=== PATIENT | male | born 1995 | race Hispanic/Latino ===

== ENCOUNTER 2020-04-19 13:20 | Emergency (ER) | payer OTHER ==
[2020-04-19 13:46] LABS: BASOPHILS % (AUTO) 0.2 % (0.0-5.0); EOSINOPHILS % (AUTO) 2.1 % (0.0-8.0); LYMPHOCYTES % (AUTO) 24.9 % (21.0-51.0); MEAN CORPUSCULAR HEMOGLOBIN 29.4 pg (27.0-33.0); MEAN CORPUSCULAR HGB CONC 34.7 g/dL (32.0-36.0); MEAN CORPUSCULAR VOLUME 84.7 fL (79-99); MONOCYTES % (AUTO) 5.7 % (3.0-13.0); NEUTROPHILS % (AUTO) 66.7 % (40.0-77.0); PLATELET COUNT (AUTO) 199 K/uL (130-400); RED BLOOD CELL COUNT(AUTO) 5.31 MIL/uL (4.50-6.20); WHITE BLOOD COUNT (AUTO) 8.5 K/uL (4.8-10.8)
[2020-04-19 13:56] LABS: CREATININE 0.8 mg/dL (0.5-1.5); POTASSIUM 3.8 mmol/L (3.5-5.1)
[2020-04-19] MEDS ORDERED: ACETAMINOPHEN 325 MG TAB ONE (13:57)
[2020-04-19 13:58] LABS: INR 1.13 (0.85-1.15)
[2020-04-19] MEDS ORDERED: ASPIRIN 325 MG TABLET ONE (13:58)
[2020-04-19 13:59] LABS: PARTIAL THROMBOPLASTIN TIME 28.9 SEC (26.3-35.5)
[2020-04-19 14:01] LABS: BILIRUBIN,TOTAL 0.6 mg/dL (0.2-1.0); MAGNESIUM 1.6 mg/dL (1.80-2.40); TOTAL PROTEIN, SERUM 7.9 g/dL (6.0-8.3)
== END 2020-04-19 15:49 | disposition home or self-care (01) ==
LOC: EDH 13:20
DX: I49.3 Ventricular premature depolarization (principal); R07.89 Other chest pain; E11.9 Type 2 diabetes mellitus without complications
CPT/HCPCS: 36415; 71045; 80053; 82550; 83735; 84484; 85025; 85610; 85730; 93005

== ENCOUNTER → 2023-10-12 | Outpatient (CLI) | payer OTHER ==
[2023-10-12 13:09] LABS: ALBUMIN 3.8 g/dL (3.5-5.0); BILIRUBIN,TOTAL 0.6 mg/dL (0.2-1.0); CREATININE 0.7 mg/dL (0.5-1.3); MAGNESIUM 1.8 mg/dL (1.80-2.40); POTASSIUM 4.3 mmol/L (3.5-5.1); T4 (THYROXINE) 8.5 ug/dL (4.7-13.3); THYROID STIMULATING HORMONE 1.88 uIU/mL (0.36-3.74)
== END | disposition home or self-care (01) ==
LOC: LAB 11:25
PROVIDERS: ATTEND Internal Medicine Cardiovascular Disease
DX: E11.9 Type 2 diabetes mellitus without complications (principal); R00.2 Palpitations
CPT/HCPCS: 36415; 80053; 83735; 84436; 84443; 84479